=== PATIENT | female | born 1985 | race Caucasian/White ===

== ENCOUNTER 2020-12-08 05:22 | Emergency (ER) | payer BC ==
[~2020-12-08] VITALS: Ht 162.6 cm; Wt 68.2 kg
[2020-12-08 05:22] VITALS: BP 130/87
[~2020-12-08 05:22] MED LIST: HYDR-3165 PO; NAPR-514 PO
--- NOTE | 2020-12-08 05:52 | PHYS DOC ---
Past History Past Medical History: No Pertinent History Past Surgical History: Other Alcohol Use: Occasionally Drug Use: Marijuana Adult General Chief Complaint Chief Complaint: BACK INJURY HPI HPI Patient is a healthy 35-year-old female who presents with a chief complaint of concern for urinary tract infection. States that she started noticing it yesterday that when she needed to go to the restroom and urinate, she felt like she had to go real bad but when she got to the restroom it was hard to get started. States that she has had something like this before, and had a urinary tract infection. States that her last [address] to her kidney. States that she has a strange pressure on her left flank as well that feels like it is radiating up from her bladder. Denies any recent travel, illnesses, fevers, Covid/flu symptoms, chest pain, shortness of breath, abdominal pain, nausea, vomiting, dysuria. Endorses urinary urgency/frequency and warm urine. Review of Systems Review of Systems Review of systems otherwise unremarkable except noted in HPI Allergies Allergies Allergies Coded Allergies Type Severity Reaction Last Updated Verified No Known Drug Allergies 06/22/16 No Physical Exam Physical Exam Constitutional: Well developed, well nourished, no acute distress, non-toxic appearance. [] Cardiovascular:Heart rate regular rhythm, no murmur [] Abdomen: soft, no tenderness, no masses, no pulsatile masses. [] Skin: Warm, dry, no erythema, no rash. [] Back: No tenderness, mild CVA tenderness. [] Extremities: No tenderness, Neurologic: Alert and oriented X 3, normal motor function, normal sensory function, no focal deficits noted. [] Psychologic: Affect normal, judgement normal, mood normal. [] Current Patient Data Vital Signs Vital Signs Date Time Temp Pulse Resp B/P (MAP) Pulse Ox O2 Delivery O2 Flow Rate FiO2 12/08/20 05:22 98.1 97 18 130/87 (101) 97 Room Air Lab Results Laboratory Tests Test 12/08/20 05:45 POC Urine HCG, Qualitative hcg negative (Negative) EKG EKG [] Radiology/Procedures Radiology/Procedures [] Heart Score C/O Chest Pain: No Risk Factors: Risk Factors: DM, Current or recent (<one month) smoker, HTN, HLP, family history of CAD, obesity. Risk Scores: Risk Factors: DM, Current or recent (<one month) smoker, HTN, HLP, family history of CAD, obesity. Course & Med Decision Making Course & Med Decision Making Patient is a 35-year-old female who presents with 1 day of urinary symptoms and concern for urinary tract infection Vital signs not concerning. Physical exam noted above. Urinalysis suggestive of UTI. Started on Keflex. Discussed findings with patient and recommended a course of antibiotics. Advised to call primary care physician tomorrow. Gave strict return precautions to the ED. Patient grateful, verbalized understanding and agreed with plan of discharge. [] Dragon Disclaimer Dragon Disclaimer This electronic medical record was generated, in whole or in part, using a voice recognition dictation system. Departure Departure: Impression: Primary Impression: Urinary tract infection symptoms Disposition: 01 DC HOME SELF CARE/HOMELESS Condition: GOOD Referrals: FIDELINA DA SILVA CNM (PCP) Patient Instructions: Urinary Retention, Acute, Male, [id number] Additional Instructions: Please read all the attached information. Please take your antibiotics as prescribed. Please follow-up with your primary care physician as soon as you can to set up a follow-up visit. Please come back to the emergency department immediately with new or concerning symptoms as discussed. Scripts Cephalexin (CEPHALEXIN) 500 Mg Capsule 1 CAP PO TID for UTI for 7 Days, #21 CAP Prov: BRYCE PIRES MD 12/08/20 BRYCE PIRES MD Dec 08, 2020 05:52
[2020-12-08 05:53] LABS: BILIRUBIN,URINE NEG (NEG); CLARITY,URINE HAZY; COLOR,URINE YELLOW; GLUCOSE,URINE NEG (NEG); NITRITE,URINE NEG (NEG); UROBILINOGEN,URINE 0.2 mg/dL (0.2 mg/dL)
[2020-12-08 05:54] LABS: BACTERIA,URINE FEW /HPF (0-FEW); SQUAMOUS EPITHELIAL CELL,UR FEW /LPF
[2020-12-08] MEDS ORDERED: CEPH500C PO (06:14)
[2020-12-08] MEDS ORDERED: CEPHALEXIN 250 MG CAPSULE PO ONE (06:30)
== END 2020-12-08 06:25 | disposition home or self-care (01) ==
LOC: ER 05:22
DX: R39.15 Urgency of urination (principal); R35.0 Frequency of micturition
CPT/HCPCS: 81001; 81025; 87086; 99283